=== PATIENT | female | born 1995 ===

== ENCOUNTER 2025-08-02 02:56 | Emergency (ER) | payer OTHER, SELFPAY ==
[2025-08-02 03:57] LABS: PLATELET COUNT, AUTOMATED 436 10^3/uL (150-450)
[2025-08-02 04:20] LABS: ETHYL ALCOHOL (ETHANOL) 0.264 % (0.000-0.010)
[2025-08-02 04:22] LABS: ALT/SGPT 17 U/L (7.0-40); AST/SGOT 16 U/L (<34); CALCIUM LEVEL 9.0 MG/DL (8.5-10.1); CARBON DIOXIDE LEVEL 20 MMOL/L (20-31); CHLORIDE LEVEL 106 MMOL/L (98-107); CREATININE FOR GFR 0.60 MG/DL (0.55-1.30); GLOMERULAR FILTRATION RATE > 90.0 (>60); POTASSIUM SERUM 3.7 MMOL/L (3.5-5.1); SALICYLATE LEVEL < 3.0 MG/DL (<30); SODIUM LEVEL 143 MMOL/L (136-145)
[2025-08-02 07:21] VITALS: BP 132/92; TEMP 98; O2SAT 99
== END 2025-08-02 07:23 | disposition home or self-care (01) ==
LOC: M ED 02:56
DX: F10.129 Alcohol abuse with intoxication, unspecified (principal); F32.A Depression, unspecified; Y90.9 Presence of alcohol in blood, level not specified